=== PATIENT | female | born 1950 | race Caucasian/White ===

== ENCOUNTER 2024-02-15 08:44 | Inpatient (IN) ==
--- NOTE | 2024-02-03 13:15 | PAT Medication Instructions ---
Medication Instructions Date of Service February 03, 2024 Home Medications Medication Instructions Recorded meloxicam 7.5 mg tablet 7.5 - 15 mg (1 - 2 x 7.5 mg) PO 09/22/23 DAILY #30 tabs acetaminophen 650 mg tablet,extended release (Tylenol Arthritis Pain) 650 mg PO Q8H PRN lisinopril 20 mg tablet 40 mg PO QAM multivitamin (Daily Multi-Vitamin tablet) 1 tab PO QAM pantoprazole 40 mg tablet,delayed release 40 mg PO QAM rosuvastatin 10 mg tablet 10 mg PO HS Fish Oil 600 mg PO QAM Glucosamine Chondroitin 1 tab PO QAM ascorbic acid (vitamin C) 1,000 mg tablet (Vitamin C) 500 mg PO QAM cholecalciferol (vitamin D3) 50 mcg (2,000 unit) capsule (Vitamin D3) 50 mcg PO QAM meloxicam 7.5 mg tablet 7.5 - 15 mg (1 - 2 x 7.5 mg) PO DAILY Citracal 800 mg PO QAM Probiotic 1 cap PO QAM biotin 10,000 mcg capsule 10,000 mcg PO QAM coenzyme Q10 100 mg capsule (Co Q-10) 100 mg PO QAM docusate sodium 100 mg capsule (Colace) 100 mg PO UD ASK your surgeon for instructions meloxicam 7.5 mg tablet 7.5 - 15 mg (1 - 2 x 7.5 mg) PO DAILY STOP taking 2 weeks before surgery (or as soon as possible if surgery is within 2 weeks) Fish Oil 600 mg PO QAM Glucosamine Chondroitin 1 tab PO QAM biotin 10,000 mcg capsule 10,000 mcg PO QAM coenzyme Q10 100 mg capsule (Co Q-10) 100 mg PO QAM DO NOT take the morning of surgery lisinopril 20 mg tablet 40 mg PO QAM multivitamin (Daily Multi-Vitamin tablet) 1 tab PO QAM ascorbic acid (vitamin C) 1,000 mg tablet (Vitamin C) 500 mg PO QAM cholecalciferol (vitamin D3) 50 mcg (2,000 unit) capsule (Vitamin D3) 50 mcg PO QAM Citracal 800 mg PO QAM Probiotic 1 cap PO QAM docusate sodium 100 mg capsule (Colace) 100 mg PO UD Take morning of surgery With a small sip of water, OTHERWISE NOTHING TO EAT OR DRINK AFTER MIDNIGHT: acetaminophen 650 mg tablet,extended release (Tylenol Arthritis Pain) 650 mg PO Q8H PRN(if needed) pantoprazole 40 mg tablet,delayed release 40 mg PO QAM Take evening before surgery acetaminophen 650 mg tablet,extended release (Tylenol Arthritis Pain) 650 mg PO Q8H PRN(if needed) rosuvastatin 10 mg tablet 10 mg PO HS Other Notes If you have any questions please call us at [phone] or [phone] or [phone] or [phone]
--- NOTE | 2024-02-10 13:04 | Anesthesiology Consultation ---
Date of Service February 10, 2024 Assessment & Plan (1) Encounter for pre-operative examination: Chart Review Chart Review: Acceptable Risk for Surgery and Patient seen in Pre Admission Testing Teaching & Discussion Pre-Anesthesia Teaching/Discussion Notes: Instructed NPO after midnight before surgery, except medications with 15 cc of water. Medication instructions provided according to the PAT guidelines. History Surgery Operation Date: 02/15/24 10:35 Proposed Procedures p L4-L5 Laminectomy, Fusion, Posterior Instrumentation; Nonsegmental and Autograft, Morselized - Haroldo Bolivar MD Height/Weight Height: 5 ft 1 in Weight: 56.245 kg Allergies Allergy/AdvReac Type Severity Reaction Status Date / Time niacin Allergy Hives Verified 02/02/24 13:08 nickel Allergy Hives Verified 02/02/24 13:08 Medications Home Medications Medication Instructions Recorded Confirmed Last Taken acetaminophen 650 mg 650 mg PO Q8H PRN Pain 05/05/23 02/02/24 08/23/23 04:00 tablet,extended release (Tylenol 650 mg Arthritis Pain) lisinopril 20 mg tablet 40 mg PO QAM 05/05/23 02/02/24 08/22/23 19:00 multivitamin (Daily Multi-Vitamin 1 tab PO QAM 05/05/23 02/02/24 08/22/23 08:00 tablet) pantoprazole 40 mg tablet,delayed 40 mg PO QAM 05/05/23 02/02/24 08/23/23 04:00 release rosuvastatin 10 mg tablet 10 mg PO HS 05/05/23 02/02/24 08/22/23 19:00 Fish Oil 600 mg PO QAM 07/27/23 02/02/24 08/09/23 Glucosamine Chondroitin 1 tab PO QAM 07/27/23 02/02/24 08/09/23 ascorbic acid (vitamin C) 1,000 mg 500 mg PO QAM 07/27/23 02/02/24 08/22/23 08:00 tablet (Vitamin C) cholecalciferol (vitamin D3) 50 50 mcg PO QAM 07/27/23 02/02/24 08/22/23 08:00 mcg (2,000 unit) capsule (Vitamin D3) meloxicam 7.5 mg tablet 7.5 - 15 mg (1 - 2 x 7.5 mg) PO 09/22/23 02/02/24 Unknown DAILY #30 tabs Citracal 800 mg PO QAM 02/02/24 02/02/24 Unknown Probiotic 1 cap PO QAM 02/02/24 02/02/24 Unknown biotin 10,000 mcg capsule 10,000 mcg PO QAM 02/02/24 02/02/24 Unknown coenzyme Q10 100 mg capsule (Co 100 mg PO QAM 02/02/24 02/02/24 Unknown Q-10) docusate sodium 100 mg capsule 100 mg PO UD 02/02/24 02/02/24 Unknown (Colace) gabapentin 100 mg tablet 100 mg PO TID 02/10/24 02/10/24 Unknown Additional Notes: Patient was instructed on continuing gabapentin as usual, she verbalized understanding and agreement, denied additional medications, questions or concerns. Blanca with surgeon's office advised patient stop meloxicam today which she was informed of and it was also written on provided medication instructions. 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 Exercise / Class Metabolic Activity II 4-5 Yardwork/Stairs/Walk up hill (denies chest discomfort or shortness of breath with 1 FOS) Past Surgical History Surgical History (Updated 02/10/24 @ 15:49 by Shantel Stephen PA-C) History of esophagogastroduodenoscopy (EGD) + dilation Hx of appendectomy Hx of breast lump removal 1978 ("benign") Hx of colonoscopy Hx of shoulder replacement left 08/23/23 LMA#4 + PNB. Hx of tonsillectomy Hx of tubal ligation Past Anesthesia History No Hx of Anesthesia Complications and No Family Hx of Anesthesia Complications History of PONV No Hx of PONV and Hx of Motion Sickness Social History Smoking Status: Never smoker Do You Dip or Chew Tobacco: No Hx Alcohol Use: No Hx Substance Use: No substance use type: does not use Review of Systems Occasional snoring, denies witnessed apneas. Patient denies chest pain, shortness of breath, dyspnea on exertion, fever, chills, cough, wheezing, or palpitations. Physical Exam Vital Signs Vitals BP 152/81 P 68 TEMP 97.8 SP02 95% on RA RESP 18 Physical Patient resting comfortably in chair in no acute distress, alert and oriented, responding appropriately throughout visit Full cervical extension range of motion without pain TMD 3.5 finger breadths Mallampati Score 2 Dentition: several caps, denies chipped or loose teeth, implants or bridges Lungs: normal respiratory effort. Good air movement, clear throughout to auscultation, no adventitious breath sounds Cardiac: regular rate and rhythm, no murmurs noted Carotid arteries: negative bruit bilat Lab Results Anesthesia Preop Results Results Anesthesia Widget: WBC 6.30 K/ul (4.8-10.8) 02/10/24 Hgb 13.7 g/dl (12.0-16.0) 02/10/24 Hct 40.2 % (37.0-47.0) 02/10/24 Plt 236 K/uL (130-400) 02/10/24 Na 141 mmol/L (136-145) 02/10/24 K 4.2 mmol/L (3.5-5.1) 02/10/24 Cl 105 mmol/L (98-107) 02/10/24 CO2 32 mmol/L (21-32) 02/10/24 BUN 20 mg/dl (6-23) 02/10/24 Creat 0.80 mg/dl (0.6-1.2) 02/10/24 Glucose Level 92 mg/dl (70-99(Fasting)) 02/10/24 PT 10.7 Seconds (9.0-12.0) 02/10/24 PTT 29 Seconds (21-31) 02/10/24 INR 1.0 (0.9-1.1) 02/10/24 Blood Type O Positive 02/10/24 Antibody Screen NEGATIVE 02/10/24 Testing Electrocardiogram Date: 08/10/23 NSR, rate 65 bpm Left axis deviation Low voltage QRS Chest X-Ray Date: 08/10/23 No acute process.
[~2024-02-15 08:44] MED LIST: DEXAMETHASONE SOD INJ 4 MG/ML VIAL ONE; GLYCOPYRROLATE 0.2 MG/ML VIAL ONE; LIDOCAINE 2% 2 ML VIAL/AMP(20MG/ML) INFIL ONE; MIDAZOLAM HCL 1 MG/ML 2ML VIAL ONE; ONDANSETRON INJ 2 MG/ML 2 ML VIAL ONE; PROPOFOL IV EMULSION 10 MG/ML 20 ML VIAL IV ONE; ROCURONIUM BROMIDE 10 MG/ML 5 ML VIAL IV ONE; SUGAMMADEX SODIUM 200 MG/2 ML VIAL IV ONE; fentaNYL citrate PF 100 MCG/2 ML VIAL ONE
[2024-02-15] MEDS ORDERED: ONDANSETRON INJ 2 MG/ML 2 ML VIAL IV PRN ×2 (09:36→16:48)
[2024-02-15] MEDS ORDERED: ATROPINE SULFATE 0.1 MG/ML 10ML SYR IV PRN (09:36)
[2024-02-15] MEDS ORDERED: PROMETHAZINE HCL 6.25 MG in SODIUM CHLORIDE 0.9% 50 ML IV PRN (09:36)
[2024-02-15] MEDS ORDERED: ePHEDrine sulfate 50 MG/ML AMP IV PRN (09:36)
[2024-02-15] MEDS ORDERED: HYDROmorphone INJ 2 MG/ML SYR/VIAL IV PRN (09:36)
[2024-02-15] MEDS ORDERED: fentaNYL citrate PF 100 MCG/2 ML VIAL IV PRN (09:36)
[2024-02-15] MEDS: LR 60ML/HR IV SCH (09:40)
[2024-02-15] MEDS: LR 15ML/HR IV SCH (09:40)
[2024-02-15] MEDS ORDERED: BUPIVACAINE 0.5 % 5 MG/1 ML MPF 30ML VIAL ONE (11:34)
[2024-02-15] MEDS ORDERED: EPINEPHrine INJ 1 MG/ML AMP ONE (11:34)
--- NOTE | 2024-02-15 11:55 | History & Physical Bridge Note ---
Date of Service February 15, 2024 History & Physical Bridge Note I have examined the patient, reviewed the History & Physical and in the interval since the performance of the History & Physical I have noted the following changes of clinical significance: no changes noted
[2024-02-15] MEDS: ceFAZolin 2000MG 2,000 MG/15 ML SYR IV SCH (11:59)
[2024-02-15] MEDS ORDERED: fentaNYL citrate PF 100 MCG/2 ML VIAL ONE (13:18)
[2024-02-15] MEDS ORDERED: PHENYLEPHRINE 100MCG/ML 10ML SYR IV ONE (13:18)
[2024-02-15] MEDS ORDERED: ePHEDrine sulfate 50 MG/5 ML SYR ONE (13:18)
[2024-02-15] MEDS: GELATIN SPONGE SZ 100 ONE (13:27)
[2024-02-15] MEDS: VANCOMYCIN HCL 1000MG/20ML VIAL ONE (13:27)
[2024-02-15] MEDS: THROMBIN 5000 UNITS KIT ONE (13:27)
[2024-02-15] MEDS ORDERED: ROCURONIUM BROMIDE 10 MG/ML 5 ML VIAL IV ONE (14:30)
[2024-02-15] MEDS: BUPIVACAINE/EPINEPHRINE 0.5% MPF 1:200,000 10 ML VIAL ONE (15:48)
[2024-02-15] MEDS: BUPIVACAINE/EPINEPHRINE 0.5% MPF 1:200,000 30 ML VIAL ONE (15:48)
[2024-02-15] MEDS: FLOSEAL HEMOSTATIC MATRIX 10ML TOP ONE (15:49)
[2024-02-15] MEDS ORDERED: DO NOT ADMINISTER FLU VACCINE PRN (16:48)
[2024-02-15] MEDS ORDERED: FAMOTIDINE 20 MG TAB PO PRN (16:48)
[2024-02-15] MEDS ORDERED: PROMETHAZINE HCL 12.5 MG in SODIUM CHLORIDE 0.9% 50 ML IV PRN (16:48)
[2024-02-15] MEDS ORDERED: LORazepam 0.5 MG in SYRINGE 0.25 ML IV PRN (16:48)
[2024-02-15] MEDS ORDERED: MAGNESIUM HYDROXIDE SUSP 30 ML UDC PO PRN (16:48)
[2024-02-15] MEDS ORDERED: METOCLOPRAMIDE HCL INJ 5 MG/ML 2 ML VIAL IV PRN (16:48)
[2024-02-15] MEDS ORDERED: DO NOT ADMINISTER PNEUMOCOCCAL VACCINE PRN (16:48)
[2024-02-15] MEDS ORDERED: hydrOXYzine HCl 25 MG TAB PO PRN (16:48)
[2024-02-15] MEDS ORDERED: bisacodyL 10 MG SUPP PR PRN (16:48)
[2024-02-15] MEDS ORDERED: ONDANSETRON 4 MG OD TAB PO PRN (16:48)
[2024-02-15] MEDS ORDERED: ALUMINUM/MAGNESIUM SUSP 30 ML UDC PO PRN (16:48)
[2024-02-15] MEDS ORDERED: HYDROmorphone INJ 0.5 MG/0.5 ML SYR IV PRN ×2 (16:48→17:55)
[2024-02-15] MEDS ORDERED: ACETAMINOPHEN 1,000 MG/100 ML VIAL IV PRN (16:48)
[2024-02-15] MEDS ORDERED: NALOXONE HCL 0.4 MG/1 ML VIAL/CARP IV PRN (16:48)
[2024-02-15] MEDS ORDERED: SOD PHOSPHATE/SOD BIPHOSPHATE ENEMA 132 ML BTL PR PRN (16:48)
[2024-02-15] MEDS ORDERED: diphenhydrAMINE Capsule 25 MG CAP PO PRN (16:48)
[2024-02-15] MEDS ORDERED: ACETAMINOPHEN 500 MG TAB PO PRN (16:48)
[2024-02-15] MEDS ORDERED: LORazepam 0.5 MG TAB PO PRN (16:48)
--- NOTE | 2024-02-15 16:48 | Post Operative Brief Note ---
PG Immediate Post Op with CF Date of Surgery February 15, 2024 Pre & Post Diagnosis Operation Date: 02/15/24 10:35 Pre-Op Diagnosis: Degenerative Spondylolisthesis Post-Op Diagnosis: Degenerative Spondylolisthesis I identified the patient and participated in the time-out.: Yes Procedure Operation Date: 02/15/24 10:35 Actual Procedures p L4-L5 Laminectomy, Fusion, Posterior Instrumentation; Nonsegmental and Autograft, Morselized(Not Applicable) - Haroldo Bolivar MD Surgeon Haroldo Bolivar MD Medical Billing Clerk none Estimated Blood Loss 100 Findings Consistent with Post-Op Diagnosis Specimens Specimen Description: None per surgeon Drains Nam Catheter
--- NOTE | 2024-02-15 17:09 | Anesthesiology Progress Note ---
Date of Service February 15, 2024 Anesthesia Post Procedure Vital Signs Vital Signs: Temp Pulse Pulse Resp BP BP Pulse Ox 02/15/24 17:05 36.5 C 71 15 138/65 94 02/15/24 16:55 71 15 137/67 94 02/15/24 16:45 71 14 142/64 H 100 02/15/24 16:38 36.2 C L 73 13 140/66 100 02/15/24 09:12 36.7 C 78 20 198/80 H 98 O2 Del Method O2 Flow Rate 02/15/24 17:05 Room Air 02/15/24 16:55 Room Air 02/15/24 16:45 Oxymask 5 02/15/24 16:38 Oxymask 5 02/15/24 09:12 Room Air Pain Intensity Back: Pain Intensity: 4 Transfer of Care Handoff Completed per policy Notes Mental Status: alert / awake / arousable Patient Amnestic to Procedure: Yes Nausea / Vomiting: adequately controlled Pain: adequately controlled Airway Patency, RR, SpO2: stable & adequate BP & HR: stable & adequate Hydration State: stable & adequate Anesthetic Complications: no major complications apparent
--- NOTE | 2024-02-15 17:35 | Fluoroscopy Report ---
INTRAOPERATIVE RADIOGRAPHS CLINICAL HISTORY: L4-L5 laminectomy. Fluoro time: 99 seconds Ka,r: 58.25 mGy FINDINGS: 3 spot fluoroscopic views of the lumbar spine are presented. There is postsurgical change f rom laminectomy and posterior fusion at L4-L5. Interpedicular screws are present at both levels. The orthopedic hardware appears intact. IMPRESSION: Intraoperative images from lumbar spinal fusion surgery as above. Electronically signed by: Luis Ellington M.D. 02/15/2024 5:34 PM
--- NOTE | 2024-02-15 18:14 | Hospitalist Consultation ---
Date of Consultation February 15, 2024 Assessment & Plan (1) Spinal stenosis of lumbar region with radiculopathy: s/p L4-L5 Laminectomy, Fusion, Posterior Instrumentation; Nonsegmental and Autograft, Morselized(Not Applicable) - Haroldo Bolivar MD on 02/14 EBL 100cc Added back home gabapentin 100mg TID for ongoing pain control Abx/IVF, Pain control, bowel regimen, PT/OT per primary service DVT proph: SCDs Of note, patient does report issues w/ constipation and pain medications in the past. Monitor bowels/encourage bowel regimen while on pain medications. Also did report some L shoulder/biceps discomfort and recent BP checked from that arm. ?positioning with surgery. No cardiac hx or CP/SOB reported. VSS. Instructed to alert nursing if any worsened symptoms/ongoing discomfort but to use R arm for BP checks (patient did report prior L shoulder surgery in the past) Labs in AM (2) Hypertension: Chronic/stable per patient BP 148/69 post-operatively in setting of pain and placed orders to hold lisinopril for AM until BP assessed/renal function stable Monitor (3) Hyperlipidemia: Chronic/stable Resumed home crestor (4) GERD (gastroesophageal reflux disease): chronic/stable resumed protonix while inpatient as takes daily Plan Thank you for allowing hospitalist service to participate in the care of Mrs. Hernandez Hospitalist service will follow along in AM. Please call with any questions/concerns. History of Present Illness Reason for Consultation: medical management Requesting Physician: Dr Bolivar Attending Physician: Haroldo Bolivar MD History of Present Illness 73yo female with PMHx significant for HTN, HLD, reflux presented for back pain/lumbar radiculopathy and planned surgery with Dr Bolivar. s/p L4-L5 Laminectomy, Fusion with Dr Bolivar earlier today. EBL 100cc Post op, resting in bed, at bedside. Thirsty and provided drink of water. Pain controlled and leg symptoms stable - she notes she had sensation of left leg giving out/jolts of pain prior to surgery. Never had prior back surgery. No hx DVT/PE or stroke. No hx DM. Denies smoking or alcohol use. No present CP/SOB, abdominal pain, nausea or vomiting reported. Does have some soreness to her left shoulder/biceps region (had prior L shoulder surgery in the past) and believes maybe BP cuff too tight or from positioning with surgery and to alert nursing if any worsened/ongoing issues. To utilize left arm for BP measurements. Questions/concerns addressed at this time. Allergies Allergy/AdvReac Type Severity Reaction Status Date / Time niacin Allergy Hives Verified 02/15/24 09:15 nickel Allergy Hives Verified 02/15/24 09:15 Home Medications Medication Instructions Recorded Confirmed Type acetaminophen 650 mg 650 mg PO Q8H PRN Pain 05/05/23 02/15/24 History tablet,extended release (Tylenol Arthritis Pain) lisinopril 20 mg tablet 40 mg PO QAM 05/05/23 02/15/24 History multivitamin (Daily Multi-Vitamin 1 tab PO QAM 05/05/23 02/15/24 History tablet) pantoprazole 40 mg tablet,delayed 40 mg PO QAM 05/05/23 02/15/24 History release rosuvastatin 10 mg tablet 10 mg PO HS 05/05/23 02/15/24 History Fish Oil 600 mg PO QAM 07/27/23 02/15/24 History Glucosamine Chondroitin 1 tab PO QAM 07/27/23 02/15/24 History ascorbic acid (vitamin C) 1,000 mg 500 mg PO QAM 07/27/23 02/15/24 History tablet (Vitamin C) cholecalciferol (vitamin D3) 50 50 mcg PO QAM 07/27/23 02/15/24 History mcg (2,000 unit) capsule (Vitamin D3) meloxicam 7.5 mg tablet 7.5 - 15 mg (1 - 2 x 7.5 mg) PO 09/22/23 02/15/24 Rx DAILY #30 tabs Citracal 800 mg PO QAM 02/02/24 02/15/24 History Probiotic 1 cap PO QAM 02/02/24 02/15/24 History biotin 10,000 mcg capsule 10,000 mcg PO QAM 02/02/24 02/15/24 History coenzyme Q10 100 mg capsule (Co 100 mg PO QAM 02/02/24 02/15/24 History Q-10) docusate sodium 100 mg capsule 100 mg PO UD 02/02/24 02/15/24 History (Colace) gabapentin 100 mg tablet 100 mg PO TID 04/11/24 04/16/24 History Patient History Medical History (Updated 02/15/24 @ 18:22 by Julisa Clayton PA-C) Skin sensitivity "tears easily" 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 Hx of breast lump removal 1978 ("benign") Hx of tubal ligation Hx of appendectomy History of esophagogastroduodenoscopy (EGD) + dilation Hx of colonoscopy Hx of tonsillectomy Social History Smoking Status: Never smoker Second Hand Exposure: No; Do You Dip or Chew Tobacco: No; Tobacco Cessation Education Requested by Patient: No Hx Alcohol Use: No Hx Substance Use: No Preferred Language: [place] Communication Ability: Effective Water Softener Service Supervisor Required: No Beliefs That Will Affect Care: None Current Living Situation: Spouse Other Information That Helps Us Care for You: No Feels Safe at Home: Yes Safety Concerns: Feels Safe At This Time Assistive Devices: Contacts and Glasses Physical Exam Physical Exam: General: 73yo female sitting up in bed, at bedside, NAD but thirsty, general pallor Head atraumatic, normocephalic, mm dry, trachea midline, cracked lips Resp; even/unlabored, no w/c/r, on room air CV: RRR, no significant m/r/g, no pitting edema, pulses present, calves nontender GI: +BS, soft/NT MSK/Neuro: dressing c/d/i, strength testing equal b/l LE, dorsiflexion/plantarflexion intact, sensation intact, pulses palpable, SCDs in place L shoulder/biceps tender but no redness/swelling (did just get BP checked from that side) Psych: AOx3, cooperative with exam Results & Data Results & Data Vital Signs (Past 12 Hours) Vital Signs Temp Pulse Pulse Resp BP BP Pulse Ox 02/15/24 17:30 36.4 C L 67 12 138/70 97 02/15/24 17:05 36.5 C 71 15 138/65 94 02/15/24 16:55 71 15 137/67 94 02/15/24 16:45 71 14 142/64 H 100 02/15/24 16:38 36.2 C L 73 13 140/66 100 02/15/24 09:12 36.7 C 78 20 198/80 H 98 O2 Del Method O2 Flow Rate 02/15/24 17:30 Nasal Cannula 02/15/24 17:05 Room Air 02/15/24 16:55 Room Air 02/15/24 16:45 Oxymask 5 02/15/24 16:38 Oxymask 5 02/15/24 09:12 Room Air Diagnostic Findings Lumbar Spine X-Ray 02/15/24 10:35 INTRAOPERATIVE RADIOGRAPHS CLINICAL HISTORY: L4-L5 laminectomy. Fluoro time: 99 seconds Ka,r: 58.25 mGy FINDINGS: 3 spot fluoroscopic views of the lumbar spine are presented. There is postsurgical change from laminectomy and posterior fusion at L4-L5. Interpedicular screws are present at both levels. The orthopedic hardware appears intact. IMPRESSION: Intraoperative images from lumbar spinal fusion surgery as above. Electronically signed by: Luis Ellington M.D. 02/15/2024 5:34 PM PG Care Time/CCT Total # of Minutes Spent Total Time Spent with Patient: Total time spent is greater than 50% in coordination of care (as documented) at patient's floor/unit and/or counseling patient: Coding Level of Care Code 12585 IN/OBS CONSULT LVL 3,45M Diagnoses Spinal stenosis of lumbar region with radiculopathy M48.061; M54.16 Hypertension I10 Hyperlipidemia E78.5 GERD (gastroesophageal reflux disease) K21.9
[2024-02-15] MEDS: LACTATED RINGER'S 1,000 ML IV SCH (18:41)
[2024-02-15] MEDS: ceFAZolin 1000MG 1,000 MG/7.5 ML SYR IV SCH (20:11)
[2024-02-15] MEDS: DOCUSATE SODIUM/SENNA 50/8.6MG TAB PO SCH (20:12)
[2024-02-15] MEDS: PANTOprazole 40 MG TAB PO SCH (20:12)
[2024-02-15] MEDS: GABAPENTIN 100 MG CAP PO SCH (20:12)
[2024-02-15] MEDS: oxyCODONE/ACETAMINOPHEN 5mg/325mg TAB PO PRN (23:27)
[2024-02-16] MEDS: POLYETHYLENE (MIRALAX) 17 GM PACK PO SCH (06:09)
[2024-02-16 06:24] LABS: Hematocrit (blood only) 32.7 % (37.0-47.0); Hemoglobin 11.2 g/dl (12.0-16.0); Mean Corpuscular Hemoglobin 30.7 pg (25.0-34.0); Mean Corpuscular Hgb Conc 34.3 g/dL (32.0-36.0); Mean Corpuscular Volume 89.6 fL (80.0-100.0); Mean Platelet Volume 9.8 fL (9.4-12.4); Platelet Count 215 K/uL (130-400); RDW Coefficient of Variation 12.6 % (11.5-14.5); RDW Standard Deviation 41.5 fL (36.4-46.3); Red Blood Count 3.65 M/uL (4.20-5.40); White Blood Count 10.28 K/ul (4.8-10.8)
[2024-02-16 06:28] LABS: BUN Creatinine Ratio 20.5 (10-20); Calcium 8.6 mg/dl (8.6-10.3); Creatinine Clr Calc Pharmacy 42.3 ml/min; Est GFR (Non-African American) 64.7 ml/min; Potassium 4.4 mmol/L (3.5-5.1)
--- NOTE | 2024-02-16 08:06 | Hospitalist Progress Note ---
Date of Service February 16, 2024 Assessment & Plan (1) Spinal stenosis of lumbar region with radiculopathy: Plan: s/p L4-L5 Laminectomy, Fusion, Posterior Instrumentation; Nonsegmental and Autograft, Morselized(Not Applicable) - Haroldo Bolivar MD on 02/14 EBL 100cc Added back home gabapentin 100mg TID for ongoing pain control Abx/IVF, Pain control, bowel regimen, PT/OT per primary service DVT proph: SCDs 02/15 WBC wnl, hgb 13.7--> 11.2, EBL 100cc + 2L IVF w/ surgery, acute blood loss anemia from surgery as well as dilutional aspect suspected. BP 108/73 this morning, repeat 116/64. Renal function stable but would hold her home lisinopril for now and monitor BPs. If no symptoms/issues and BPs stabilized can resume in AM as discussed w/ patient if her SBP >120 and she has cuff at home. +BS on exam and provided miralax and has colace at home and instructed to continue to prevent constipation. No further L shoulder/biceps discomfort and suspect was from positioning/BP cuff and has resolved. NO CP/SOB reported. (2) Hypertension: Plan: Chronic/stable per patient Lisinopril placed on hold as above, BP borderline but stable 116/64 and asymptomatic but as discussed w/ patient would monitor at home and resume tomorrow if SBP stable and without symptoms. If needing, discussed could be held 48 hours if needed, f/u PCP. (3) Hyperlipidemia: Plan: Chronic/stable Resumed home crestor, continued (4) GERD (gastroesophageal reflux disease): Plan: chronic/stable continue protonix daily Plan Thank you for allowing hospitalist service to participate in the care of Mrs. Hernandez Hospitalist service will sign off at this time. Please call with any questions/concerns. Admission and Anticipated Discharge Date Admission Date: February 15, 2024 Supervising Physician Co-Signing Physician Notes The patient was seen by me. The chart was reviewed. Case discussed with JEWELL Davis. Agree with assessment and plan Subjective Evaluated patient this morning, sitting up in recliner. Didn't feel great this morning secondary to pain but realized she hadn't taken anything for pain since the prior evening and believes was playing catch up and reports feeling much better at present time. No CP/SOB reported. BP stable but borderline, asymptomatic but discussed she has BP cuff at home and monitoring and if SBP >120 tomorrow and feeling well can resume but would hold off resuming otherwise until meeting this parameter to prevent hypotension. Passing gas, got miralax this morning. Reports has colace at home and instructed to continue on pain medication.No further shoulder discomfort. Leg symptoms stable/improved. Anticipating discharge today. Questions/concerns addressed at this time. Physical Exam Physical Exam: General: 73yo female sitting up in chair, NAD Head atraumatic, normocephalic, mm IMPROVED/moist, trachea midline Resp; even/unlabored, no w/c/r, on room air CV: RRR, no significant m/r/g, no pitting edema, pulses present, calves nontender GI: +BS, soft/NT MSK/Neuro: dressing c/d/i, strength testing equal b/l LE, dorsiflexion/plantarflexion intact, sensation intact, pulses palpable, SCDs in place Psych: AOx3, cooperative with exam Results & Data Results & Data Vital Signs (Past 12 Hours) Vital Signs Temp Pulse Resp BP BP Pulse Ox O2 Del Method 02/16/24 04:14 36.8 C 75 18 108/73 97 Room Air 02/15/24 23:14 36.5 C 72 16 150/76 H 95 Room Air 02/15/24 20:30 36.5 C 77 17 163/70 H 95 Room Air Laboratory Results 02/16/24 Range/Units 05:39 WBC 10.28 (4.8-10.8) K/ul RBC 3.65 L (4.20-5.40) M/uL Hgb 11.2 L (12.0-16.0) g/dl Hct 32.7 L (37.0-47.0) % MCV 89.6 (80.0-100.0) fL MCH 30.7 (25.0-34.0) pg MCHC 34.3 (32.0-36.0) g/dL RDW Std Deviation 41.5 (36.4-46.3) fL RDW Coeff of Loree 12.6 (11.5-14.5) % Plt Count 215 (130-400) K/uL MPV 9.8 (9.4-12.4) fL Sodium 138 (136-145) mmol/L Potassium 4.4 (3.5-5.1) mmol/L Chloride 106 (98-107) mmol/L Carbon Dioxide 27 (21-32) mmol/L Anion Gap 5 (3-11) BUN 18 (6-23) mg/dl Creatinine 0.88 (0.6-1.2) mg/dl Est Cr Clr Drug Dosing 42.3 ml/min Est GFR ( Amer) 75.0 ml/min Est GFR (Non-Af Amer) 64.7 ml/min BUN/Creatinine Ratio 20.5 H (10-20) Glucose 120 H (70-99(Fasting)) mg/dl Calcium 8.6 (8.6-10.3) mg/dl Magnesium 2.0 (1.7-2.4) mg/dl Diagnostic Findings Lumbar Spine X-Ray 02/15/24 10:35 INTRAOPERATIVE RADIOGRAPHS CLINICAL HISTORY: L4-L5 laminectomy. Fluoro time: 99 seconds Ka,r: 58.25 mGy FINDINGS: 3 spot fluoroscopic views of the lumbar spine are presented. There is postsurgical change from laminectomy and posterior fusion at L4-L5. Interpedicular screws are present at both levels. The orthopedic hardware appears intact. IMPRESSION: Intraoperative images from lumbar spinal fusion surgery as above. Electronically signed by: Luis Ellington M.D. 02/15/2024 5:34 PM PG Care Time/CCT Total # of Minutes Spent Total Time Spent with Patient: Total time spent is greater than 50% in coordination of care (as documented) at patient's floor/unit and/or counseling patient: Coding Level of Care Code 09154 SUB INP/OBS CARE 2/35MIN Diagnoses Spinal stenosis of lumbar region with radiculopathy M48.061; M54.16 Hypertension I10 Hyperlipidemia E78.5 GERD (gastroesophageal reflux disease) K21.9
[2024-02-16] MEDS ORDERED: lisinopril 40 MG TAB PO SCH (09:00)
--- NOTE | 2024-02-16 11:43 | Orthopedic Progress Note ---
Date of Service February 16, 2024 Assessment & Plan (1) Status post lumbar laminectomy: Overall, she is doing quite well today with good pain control to the lumbar spine. She will work with physical therapy to work on ambulation and range of motion exercises. She can be discharged home later this morning pending formal physical therapy evaluation and recommendations. She will follow-up with Dr. Bolivar in 2 weeks for postoperative management. Patient was seen and examined, she reports some incisional pain but no other notable symptoms. Patient will be mobilized with physical therapy with possible discharge if she is doing well later in the day. Ravinder Hale was seen and evaluated this morning resting comfortably in no apparent distress. She notes that her back pain has improved postoperatively but still has the usual postoperative pain. She has been up and out of bed with no significant issues. She is about to participate with physical therapy upon my evaluation. She denies any other concerns today. Review of Systems All systems reviewed & are unremarkable except as noted in HPI & below. Physical Exam . On physical examination of the lumbar spine as well as lower extremities show dressings are clean, dry, intact. Grossly intact motor and sensory function to bilateral lower extremities. Intact plantarflexion and dorsif lexion. +2 DP and PT pulses. Less than 2-second capillary refill. Normal sensation. Neurovascular intact. Results & Data Results & Data Laboratory Results . Diagnostic Findings . PG Care Time/CCT Total # of Minutes Spent Total Time Spent with Patient: Total time spent is greater than 50% in coordination of care (as documented) at patient's floor/unit and/or counseling patient: Coding Level of Care Code 51094 Post Operative Follow-Up Diagnoses Status post lumbar laminectomy Z98.890
--- NOTE | 2024-02-16 11:48 | Discharge Summary ---
Date of Service February 16, 2024 Principal Diagnosis Same as "Discharge Diagnosis" noted below under Discharge Instructions. Discharge Exam . On physical examination of the lumbar spine as well as lower extremities show dressings are clean, dry, intact. Grossly intact motor and sensory function to bilateral lower extremities. Intact plantarflexion and dorsiflexion. +2 DP and PT pulses. Less than 2-second capillary refill. Normal sensation. Neurovascular intact. Discharge Data Consultations 02/15/24 16:54 Consult Hospitalist Routine Procedures Performed Operation Date: 02/15/24 10:35 Actual Procedures p L4-L5 Laminectomy, Fusion, Posterior Instrumentation; Nonsegmental and Autograft, Morselized(Not Applicable) - Haroldo Bolivar MD Ordered Studies 02/15/24 10:35 FL lumbar spine 2-3V Routine Hospital Course (1) Status post lumbar laminectomy: On February 15, 2024 Alexia arrived at [facility] and underwent a L4-L5 laminectomy, fusion, posterior instrumentation performed by Dr. Bolivar with no complications. She had a general anesthetic. Postoperatively, she was transferred to the PACU for immediate postoperative management and then transferred to the general orthopedic floor in stable condition. Her hospital course was uneventful. On postoperative day #1, her vital signs were stable and her pain was well-controlled. She participated well with physical therapy working on ambulation and range of motion exercises. She was then discharged home in stable condition. She will follow-up with Dr. Bolivar in 2 weeks for postoperative management. PG Care Time/CCT Total # of Minutes Spent Total Time Spent with Patient: Total time spent is greater than 50% in coordination of care (as documented) at patient's floor/unit and/or counseling patient: Discharge Plan Discharge Items Patient Disposition: Home - Self-Care Reason For Visit: SURGERY Discharge Diagnosis: Same Activity: Per Instructions section Non-emergency contact: Surgeon Call non-emergency contact if: your temperature is above 101.5, your wound has increased redness, your wound has increased drainage and your wound pain has increased Follow-up/Referrals: Stanford Lopez MD [Primary Care Provider] - Diet: Regular Addtl Attending Provider Instructions: Please follow Dr. Bolivar Post Operative Instructions that were given in the office upon scheduling surgery. -Dressings will be changed prior to discharge. -Keep Surgical site dry for the next 3 days. -May shower after 3 days with no soaking of the surgical site -May leave surgical site open to air if dry. -Cover the surgical site with a bandage if draining or getting caught on clothes. -Take it easy for the next 2 weeks. (Ex: No Lifting, running, bending, or twisting, etc.). -You will F/u with Dr. Bolivar in 2 weeks for postoperative care. -If any questions or concerns in the mean time, Reach out to [facility] at [phone] Pending Studies at Discharge: No Stand-Alone Forms: [facility], Pain - Opioid Pain Management, Smoking Cessation Medications and DC Order Prescriptions: New oxycodone-acetaminophen [Percocet] 5-325 mg Tablet 1 tab PO Q6H PRN (Reason: pain) Qty: 24 0RF Continued lisinopril 20 mg tablet 40 mg PO QAM pantoprazole 40 mg tablet,delayed release (DR/EC) 40 mg PO QAM rosuvastatin 10 mg tablet 10 mg PO HS multivitamin [Daily Multi-Vitamin] Tablet 1 tab PO QAM ascorbic acid (vitamin C) [Vitamin C] 1,000 mg Tablet 500 mg PO QAM cholecalciferol (vitamin D3) [Vitamin D3] 50 mcg (2,000 unit) Capsule 50 mcg PO QAM Fish Oil 600 mg PO QAM Glucosamine Chondroitin 1 tab PO QAM biotin 10,000 mcg Capsule 10,000 mcg PO QAM coenzyme Q10 [Co Q-10] 100 mg Capsule 100 mg PO QAM Citracal 800 mg PO QAM docusate sodium [Colace] 100 mg Capsule 100 mg PO UD Rx Instructions: M/W/F Probiotic 1 cap PO QAM gabapentin 100 mg Tablet 100 mg PO TID Discontinued meloxicam 7.5 mg tablet 7.5 - 15 mg PO DAILY MDD 2 pills Qty: 30 1RF Patient Comments: only taking when needed Rx Instructions: With meals if possible. acetaminophen [Tylenol Arthritis Pain] 650 mg tablet extended release 650 mg PO Q8H PRN (Reason: Pain) Patient Comments: takes twice daily Discharge Orders: Discharge Order (Routine); Ordered 02/16/24 Ordered By: Dalton Chaudhary/Other Patient Handouts: Laminectomy Admission Data Admit Date/Time: 02/15/24 16:48 Attending Provider: Haroldo Bolivar Admit Provider: Haroldo Bolivar Primary Care Provider: Stanford Lopez Other Providers: Mando Joaquin Other Interventions: Discharge Summary Assessment (RN) Last Done: 02/16/24 11:30
--- NOTE | 2024-02-18 20:12 | Operative Report ---
PG Post Operative Report Pre & Post Diagnosis Operation Date: 02/15/24 10:35 Pre-Op Diagnosis: Degenerative Spondylolisthesis Post-Op Diagnosis: Degenerative Spondylolisthesis I identified the patient and participated in the time-out.: Yes Procedure Operation Date: 02/15/24 10:35 Actual Procedures p L4-L5 Laminectomy, Fusion, Posterior Instrumentation; Nonsegmental and Autograft, Morselized(Not Applicable) - Haroldo Bolivar MD Surgeon Haroldo Bolivar MD General Manager none Estimated Blood Loss 100 Findings Consistent with Post-Op Diagnosis Specimens None Description of Procedure 1. L4-5 posterior lumbar decompression with laminectomy and decompression of L4 and L5 nerve roots bilaterally. (85379) 2. L4-5 posterolateral arthrodesis. (17784) 3. L4-5 posterior nonsegmental arthrodesis, NuVasive reline (98006) 4. Utilization of products of decompression for fusion purposes, autograft (88879) Patient taken operating room and after adequate esthesia was carefully positioned prone on the [place] top, carefully checked for positioning. A preprepped was performed followed by bringing in fluoroscopy where I marked for the incision at the L4-5 level followed by prepping and draping. Midline incision was then made and carried down through the subcutaneous tissues onto either side of the spinous processes and down to the L4 and L5 laminar and interlaminar region. Once in position, our location was confirmed fluoroscopically. I then continued the exposure out to the transverse processes of L4 and L5 on both sides mobilizing the soft tissues from the fusion surfaces of the transverse processes and lateral aspect of the facets. Sponges were packed, I brought in fluoroscopy and then utilized this along with high-speed bur to make the start point for the pedicle screws. Gearshift probes were inserted using monitoring advanced into the pedicles for starting at L4 with excellent position followed by An insertion of 6.5 millimeter screws from the NuVasive reline set. In an identical fashion screws were then inserted L5 to complete the instrumentation. The decompression included removal of the spinous process of L4 and inferior lamina of L4 and across superior laminar edge of L5 and then partial medial facetectomies. Curettes and Kerrison punches were then used to thin and remove the ligamentum flavum, undercut the facets and across the lamina on both sides to complete the decompression. The bone dust from the high-speed bur and also the morselized pieces of bone were then added to the fusion materials, and these were placed in the posterolateral region. The rods were then placed, first fixed at L5 and then the reduction tool was utilized to reduce some of the spondylolisthesis at L4-5. Final images were obtained, the operative site had been irrigated thoroughly, vancomycin powder was placed followed by closure with 0 Vicryl sutures, additional vancomycin powder and 2-0 Vicryl sutures and lex for the skin. Sterile dressing was applied, patient tolerated procedure well was taken to recovery room in satisfactory condition. I attest to the content of the Intraoperative Record and any orders documented therein. Any exceptions are noted below.
== END 2024-02-16 13:18 | disposition home or self-care (01) | DRG 460 ==
LOC: ASU 08:44 → 3E 16:48
DX: M43.16 Spondylolisthesis, lumbar region; E78.5 Hyperlipidemia, unspecified; M54.16 Radiculopathy, lumbar region; M48.061 Spinal stenosis, lumbar region without neurogenic claudication; K21.9 Gastro-esophageal reflux disease without esophagitis; Z96.612 Presence of left artificial shoulder joint; D62 Acute posthemorrhagic anemia; I10 Essential (primary) hypertension